=== PATIENT | male | born 1960 | race Caucasian/White ===

== ENCOUNTER → 2017-07-21 | Outpatient (CLI) | payer OTHER ==
[~2017-07-21] MED LIST: AMITRIPTYLINE H75 M1 PO; COZAAR 50 MG TA50 M2 PO; FLEXERIL PO; FLOMAX0.4 MG PO; IBUPROFEN 800800 M1 PO; MORPHINE SULFA100 MG PO; MORPHINE SULFAT15 M3 PO; OMEPRAZOLE40 MG PO; PROTONIX40 M1 PO; XANAX1 MG PO; aller-tec PO
--- NOTE | 2017-07-21 16:29 | CARDNUC ---
[place] [address] CARDIAC NUCLEAR IMAGING REPORT Name: CLAUDY TALLEY Room: [facility]#: [id number] Admission: 07/21/17 Attend Phys: Redd Vera, Discharge: Date of : 64 Date of Service: 07/21/17 1629 Report #: [id number] THIS REPORT FOR: //name// APPROVED REPORT Exam: Nuclear Stress Test Indication: Chest pain Patient Location: Out-Patient Stress Tech: Elena Stewart Stress Nurse: Kandice Kaufman RN Ht: 6 ft 0 in Wt: 186 lbs BSA: 2.07 m2 BMI: 25.22 Medical History Medical History: HTN, Smoking Medications: LOSARTAN Allergies: MOLD EXTRACT Cardiac Risk Factors: Age, Current Smoker, HTN Exercise History: Sedentary Physical Disabilities: LEG INJURY Stress Test Details Stress Test: Pharmacologic stress testing performed using 0.4 mg of regadenoson per 5 mL given IV over 10 seconds. Reason for pharmacologic stress test: physical limitation. HR Resting HR: 79 bpm Max Heart Rate (APMHR): 166 bpm Max HR Achieved: 118 bpm Target HR (85% APMHR): 141 bpm % of APMHR: 71 Recovery HR: 86 bpm BP Resting BP: 138/83 mmHg Max BP: 148/71 mmHg ECG Resting ECG: Sinus Rhythm Stress ECG: Sinus Rhythm ST Change: None Arrhythmia: None Recovery ECG: Sinus Rhythm Recovery ST Change: None Recovery Arrhythmia: [place] [address] CARDIAC NUCLEAR IMAGING REPORT Name: CLAUDY TALLEY Room: [facility]#: [id number] Admission: 07/21/17 Attend Phys: Redd Vera, Discharge: Date of : 64 Date of Service: 07/21/17 1629 Report #: [id number] Clinical Reason for Termination: Completed protocol Stress Symptoms: None Exercise duration: 0 min sec Exercise capacity: 1.0 METs The patient had no significant symptoms with Lexiscan infusion. Stress ECG Conclusion The baseline 12-lead electrocardiogram showed sinus rhythm without significant ST or T wave abnormality. EKGs obtained during and post IC skin stress show sinus rhythm with no significant ST or T wave changes when compared to baseline. There were no stress-induced arrhythmias. NM EXAM: Myocardial Perfusion REST/STRESS Imaging Protocol: Rest Tc-99m/Stress Tc-99m 1 day Resting Data Rest SPECT myocardial perfusion imaging was performed in supine position 30 minutes following the intravenous injection of 11.3 mCi of Tc-99m Sestamibi. Time of rest injection: 1255 Time of rest imagin The images were gated to evaluate regional wall motion and calculate left ventricular ejection fraction. Administration Route: IV Administration Site: Right AC Pharmacologic Stress Pharmacologic stress test was performed by injecting Regadenoson 0.4 mg IV push followed by the intravenous injection of 33.8 mCi of Tc-99m Sestamibi. Time of stress injection: 1440 Time of stress imagin Administration Route: IV Administration Site: Right AC Heart Rate at time of stress injection: 118 bpm. Gated Stress SPECT was performed 40 minutes after stress injection. The images were gated to evaluate regional wall motion and calculate left ventricular ejection fraction. Prone imaging [place] [address] CARDIAC NUCLEAR IMAGING REPORT Name: CLAUDY TALLEY Room: [facility]#: [id number] Admission: 07/21/17 Attend Phys: Redd Vera, Discharge: Date of : 64 Date of Service: 07/21/17 1629 Report #: [id number] Study: Good Artifact: Mild Diaphragmatic artifact Study Data At rest, the left ventricular ejection fraction was 73%.. Post stress, the left ventricular ejection was 73%.. TID = 0.94. Perfusion Perfusion images obtained at rest show mild photopenia of the inferior wall that resolves with prone imaging post Lexiscan stress suggesting diaphragmatic attenuation artifact. Post stress imaging shows uniform uptake of the radioisotope throughout the myocardium without defect. Wall Motion Normal left ventricular wall motion. Nuclear Conclusion ECG Findings: negative for ischemia Clinical Findings: negative for ischemia Nuclear Findings: negative for ischemia Exercise Capacity: not assessed Left Ventricular Function: normal Risk Study: low Myocardial perfusion images show no defect to suggest infarct or ischemia. Left ventricular systolic function appears normal on gated studies. This is a low risk study. <Conclusion> The baseline 12-lead electrocardiogram showed sinus rhythm without significant ST or T wave abnormality. EKGs obtained during and post IC skin stress show sinus rhythm with no significant ST or T wave changes when compared to baseline. There were no stress-induced arrhythmias. <ELECTRONICALLY SIGNED> By: Redd Vera MD, FACC 07/21/17 1629 1629 1629 Redd Vera MD, FACC /INF
== END ==
LOC: M.NUC 12:20
DX: R07.89 Other chest pain (principal); I10 Essential (primary) hypertension; Z87.891 Personal history of nicotine dependence

== ENCOUNTER → 2017-12-26 | Outpatient (CLI) | payer OTHER | LOC: M.MRI 17:22 | DX: M47.816 Spondylosis without myelopathy or radiculopathy, lumbar region (principal); M51.36 Other intervertebral disc degeneration, lumbar region; M48.062 Spinal stenosis, lumbar region with neurogenic claudication; M25.78 Osteophyte, vertebrae ==

== ENCOUNTER → 2018-01-17 | Outpatient (CLI) | payer OTHER ==
--- NOTE | 2018-02-27 10:30 | PAINCON ---
[facility] [address] [place] [address] PAIN MANAGEMENT CONSULTATION Name: CLAUDY TALLEY Room: [facility] Nigel#: [id number] Admission: 01/17/18 Attend Phys: Lam Rodríguez MD Discharge: Date of : 64 Report #: [id number] THIS REPORT FOR: //name// CC: Lily Aaron DATE OF SERVICE: 01/17/2018 CHIEF COMPLAINT: Back pain. HISTORY OF PRESENT ILLNESS: The patient is a 57-year-old gentleman who has been referred to the pain clinic for evaluation of back pain. The patient states that he does have some pain in the middle of his back. Described as a sharp, stabbing discomfort. Worse with prolonged walking, sitting, standing. Notes some increased pain with activity, bending, lifting and going from a sitting to a standing position. He has had problems with his back in the past. He underwent a surgical fusion at L5-S1 in 2000. He notes that the pain limits his activities of daily living. He finds it hard to complete his "chores." He feels that it is a "daily struggle." He rates his pain as a 9/10 at this point. Denies any bowel or bladder dysfunction. The patient states that he was taking morphine 100 mg b.i.d. as well as 15 mg morphine immediate release b.i.d. He states that over the last few weeks, he stopped taking his medications. He found that it was somewhat difficult secondary to some of the withdrawal-type symptomatology, but overall he feels that he has passed that stage. As you may recall, he suffers from PTSD. He has had some pain in his low back area with pain that has radiated down into his left foot. He feels that there is some tightness of the muscles in the low back as well. He has had what he consider some numbness and tingling in his legs. He has a history of hepatitis C. MEDICATIONS: Xanax 1 mg q.i.d.; Elavil 150 mg at bedtime; Flexeril 10 mg 1 p.o. t.i.d., spasms; Motrin 800 mg every 8 hours; losartan 50 mg; morphine sulfate immediate release 15 mg b.i.d., the patient states he has stopped taking this medication; omeprazole 40 mg; Flomax 0.4 mg b.i.d., Aller-Savanna 10 mg daily. PAST MEDICAL HISTORY: Epigastric pain, enlarged prostate, gastroesophageal reflux, posttraumatic stress disorder, chronic bilateral lower back pain with history of right-sided sciatica, mid back pain, precordial pain, essential hypertension, hepatitis C and shingles. PAST SURGICAL HISTORY: Back surgery in 2000, bladder surgery, colonoscopy, sigmoid polyp, hand surgery, sinus surgery and transurethral resection of the prostate. SOCIAL HISTORY: Smokes half pack of [place] [address] PAIN MANAGEMENT CONSULTATION Name: CLAUDY TALLEY [id number] Admission: 01/17/18 Attend Phys: Lam Rodríguez MD Discharge: Date of : 64 Report #: [id number] REVIEW OF SYSTEMS: Generally unremarkable except for the HPI. DIAGNOSTIC DATA: MRI dated 12/26/2017 of the lumbar spine: 1. L3-L4, there is a generalized disk bulge and mild bilateral facet arthropathy and ligamentum flavum hypertrophy. There is mild central canal stenosis and mild bilateral neural foraminal stenosis. 2. L4-L5, there is no disk bulge. There is a mild bilateral facet arthropathy and ligamentum flavum hypertrophy. There is no central canal or neural foraminal stenosis. 3. L5-S1, there is no disk bulge. There are bilateral endplate osteophytes and moderate bilateral facet arthropathy. There is no central canal stenosis. There is stable mild bilateral neural foraminal stenosis. IMPRESSION: 1. Again, new moderate L3-L4 and mild L4-L5 and L1-L2 degenerative disk disease. 2. L3-L4 generalized disk bulge with mild bilateral facet arthropathy and ligamentum flavum hypertrophy contributes to mild central canal stenosis and mild bilateral neural foraminal stenosis. 3. Stable changes of instrumented posterior spinal fixation procedure at L5-S1. PAIN CLINIC ASSESSMENT: 1. History of osteoarthritis/history of arthritis. The patient is not being treated for osteoarthritis or rheumatoid arthritis. 2. Height 6 feet, weight 191 pounds, BMI is 26.1. 3. Vital Signs: Blood pressure is 166/103, another blood pressure 166/87, heart rate 87, respiratory rate 16, room air saturation is 98%, temperature 98.3. Pain clinic score 9/10. 4. Fall. The patient states that he has fallen in the past. 5. Blood thinner. The patient is not on a blood thinning medication. 6. History of hypertension. The patient has been treated for hypertension. 7. Opioid greater than 6 weeks. The patient was on opioid medications. He states that he stopped taking these over the past few weeks. 8. Risk assessment tool. 9. Functional assessment tool. 10. Recreational drug use. The patient denies use of recreational drugs. 11. Tobacco: The patient smokes one-half pack of cigarettes per day. 12. Alcohol: The patient denies use of alcohol. PHYSICAL EXAMINATION: GENERAL: The patient is a well-developed, well-nourished white male. Appears his stated age. He is alert and oriented x 3. Affect is unremarkable, was present with his significant other. HEENT: Normocephalic, atraumatic. Extraocular eye muscles intact. Sclerae nonicteric. Mucous membranes are moist. NECK: Without adenopathy [place] [address] PAIN MANAGEMENT CONSULTATION Name: CLAUDY TALLEY Room: [facility]#: [id number] Admission: 01/17/18 Attend Phys: Lam Rodríguez MD Discharge: Date of : 64 Report #: [id number] HEART: Regular rate. S1, S2. ABDOMEN: Nontender. EXTREMITIES: Upper extremity muscle strength is judged to be 5/5 for the major muscle groups. MUSCULOSKELETAL: Without significant scoliosis, kyphosis or lordosis. The patient has some pain and discomfort approximately at T12-L1. The patient states that he feels as though a rib is out of place. Forward bending to touch his toes was not very problematic. Lumbar extension was not very problematic. Left and right lateral bending, left and right lateral rotation were not very problematic, but the patient did complain of pain and discomfort in the mid area approximately T12-L1. Lower extremity muscle strength is judged to be 5/5 for the major muscle groups without complaints of radiculopathy at this juncture. IMPRESSION: 1. Low back pain. 2. Epigastric pain. 3. Enlarged prostate. 4. Gastroesophageal reflux. 5. Posttraumatic stress disorder. 6. Chronic bilateral lower back pain with history of right-sided sciatica. 7. Mid back pain. 8. Precordial pain. 9. Essential hypertension. 10. Hepatitis C. 11. Shingles. RECOMMENDATION: We discussed treatment options with the patient. Risks and benefits of trigger point injections to the affected area were discussed. The patient states that he is not interested in continuing with opioid medications. He states that he stopped taking the medication and that things have gotten better. Feels like he is over the withdrawal component of the opioids. Did not have any cardiac events during the withdrawal. Again, his biggest concern is pain in the mid back area. We discussed options. We will have the patient return to the pain clinic, at which time we will consider an epidural treatment. <ELECTRONICALLY SIGNED> By: Lam Rodríguez MD 02/27/18 1030 1122 1840N. Emre Rodríguez MD /nt
== END ==
LOC: M.PC 03:46
DX: M54.5 Low back pain (principal); I10 Essential (primary) hypertension; N40.0 Benign prostatic hyperplasia without lower urinary tract symptoms; K21.9 Gastro-esophageal reflux disease without esophagitis; B19.20 Unspecified viral hepatitis C without hepatic coma; R10.13 Epigastric pain; B02.9 Zoster without complications; R07.2 Precordial pain; G89.29 Other chronic pain

== ENCOUNTER → 2018-01-20 | Outpatient (CLI) | payer OTHER ==
[2018-01-21 05:10] LABS: HEPATITIS B SURFACE AG Negative (Negative)
== END ==
LOC: M.LAB 15:00
PROVIDERS: Nurse Practitioner Adult Health
DX: R10.13 Epigastric pain (principal); Z79.1 Long term (current) use of non-steroidal anti-inflammatories (NSAID)

== ENCOUNTER 2018-03-07 17:17 | Emergency (ER) | payer OTHER ==
[~2018-03-07] VITALS: Ht 182.9 cm; Wt 86.6 kg
[~2018-03-07 17:17] MED LIST changes: -PROTONIX40 M1 PO
[2018-03-07] MEDS ORDERED: PROTONIX40 M1 PO (17:31)
[2018-03-07 19:30] VITALS: BP 127/89
== END 2018-03-07 19:30 | disposition home or self-care (01) ==
LOC: M.ERS 17:17
DX: F41.9 Anxiety disorder, unspecified (principal); K21.9 Gastro-esophageal reflux disease without esophagitis; I10 Essential (primary) hypertension

== ENCOUNTER → 2018-03-16 | Outpatient (CLI) | payer OTHER ==
[~2018-03-16] MED LIST changes: +PROTONIX40 M1 PO
--- NOTE | 2018-03-29 16:38 | PAINCON ---
[address] [address] PAIN MANAGEMENT CONSULTATION Name: CLAUDY TALLEY [id number] Admission: 03/16/18 Attend Phys: Lam Rodríguez MD Discharge: Date of : 64 Report #: [id number] THIS REPORT FOR: //name// CC: Lily Rodríguez DATE OF SERVICE: 03/16/2018 COMPLAINT: Here for an injection in the back. FOLLOWUP HISTORY: The patient is a 57-year-old gentleman who has been seen in the pain clinic. He has pain and discomfort in his mid back area. States that he feels as though a rib has been moved out of place. Notes the pain is worse with walking, sitting, standing and certain activities of daily living. Notes that the pain is significant enough that he has difficulty sleeping. He has been having some difficulty with his balance. States that he has fallen. He has been having back pain since 2000. As you may recall, he has had surgery in the lower portion of his back in the lumbar area. He was on opioid medications. He states that he stopped these medications some time ago. As you may recall, he suffers from PTSD. He does continue to have some pain that radiates down into his left foot. The pain that he is experiencing today is more problematic up in the upper thoracic area. He state it feels as like a rib is out of place. ALLERGIES: No known drug allergies. CURRENT MEDICATIONS: Flexeril 10 mg 1 p.o. t.i.d., ibuprofen 800 mg q. 8 hours p.r.n., Cozaar 50 mg, Protonix 40 mg daily, Flomax 0.4. PAIN CLINIC ASSESSMENT AND PQRS: 1. History of osteoarthritis. The patient has some arthritic changes in the low back area, has had surgery. 2. Rheumatoid arthritis. The patient is not being treated for rheumatoid arthritis. 3. Height 6 feet 0 inches, weight 188 pounds, BMI is 25.5. 4. Vital signs: Blood pressure 145/102 on the right side, left side 157/106, heart rate 95, respiratory rate 18, room air saturation 97%, temperature 98.3. 5. Pain score 8/10. 6. Fall risk. The patient states that he has fallen. He does walk with an antalgic gait and uses a cane. 7. Blood thinner. The patient is not on a blood thinning medication. 8. Hypertension. The patient is being treated for hypertension. 9. Opioids greater than 6 weeks. The patient is not on an opioid medication. He stopped these medications while back. 10. Risk assessment tool. 11. Functional assessment tool. 12. Recreational drug use. The patient denies [place] [address] PAIN MANAGEMENT CONSULTATION Name: CLAUDY TALLEY Room: [facility]#: [id number] Admission: 03/16/18 Attend Phys: Lam Rodríguez MD Discharge: Date of : 64 Report #: [id number] 13. Tobacco: The patient is smoking cigarettes 1 pack per day. 14. Alcohol: The patient denies use of alcohol on a regular basis. PHYSICAL EXAMINATION: GENERAL: The patient is a well-developed, well-nourished white male. Appears as stated age. He is alert and oriented x 3. Affect is appropriate. Speech is somewhat slow, but fluent. HEENT: Normocephalic, atraumatic. Extraocular eye muscles intact. Sclerae nonicteric. The patient is wearing glasses. NECK: Without adenopathy or JVD. HEART: Regular rate. S1, S2. ABDOMEN: Nontender. Bowel sounds present. EXTREMITIES: Upper extremity muscle strength is judged to be 5/5 for the major muscle groups. The patient without significant scoliosis, kyphosis or lordosis. Does walk with a slight lean to the left. The patient walks with use of his cane. Has some pain and discomfort in approximately the T10/T12 area. Palpation in the area does reproduce the patient's discomfort. Feels that there is "a rib out of place." At T11/T12, the patient notes pain and discomfort. This reproduces his pain and discomfort. Palpation in this area, he has some pain around the side area. Movement of the upper extremity does reproduce pain and discomfort in the T12 area. IMPRESSION: 1. Low back pain, thoracic area T11/T12. 2. Epigastric pain. 3. Enlarged prostate. 4. Gastroesophageal reflux. 5. Post-traumatic stress disorder. 6. Chronic bilateral low back pain with history of right-sided sciatica. 7. Mid back pain. 8. Precordial pain. 9. Essential hypertension. 10. Hepatitis C. 11. Shingles. The patient has had these in the past. RECOMMENDATIONS: We discussed treatment options with the patient. At this juncture, he continues to have pain and discomfort in the mid back area. This in the area of the T12 area. Palpation between T12 and T11 reproduce the patient's discomfort. Still has pain that he describes like a rib out of place. We discussed the possible complication of the procedure, which could include but are not limited to infection, increased muscle soreness, headache, bleeding, worsening of pain, no improvement in pain, paralysis, pneumothorax and the patient elects to proceed. PROCEDURE NOTE: The patient was taken to the procedure area. He was then assisted in getting on the examination table. His back [place] [address] PAIN MANAGEMENT CONSULTATION Name: CLAUDY TALLEY Room: [facility]#: [id number] Admission: 03/16/18 Attend Phys: Lam Rodríguez MD Discharge: Date of : 64 Report #: [id number] with a Betadine solution. Fluoroscopy using anterior, posterior as well as lateral imaging were conducted. At the T11/T12 area, palpation in this area causes the patient to complain of pain and discomfort, which he has been experiencing. His back was then sterilely prepped with a Betadine solution. A pillow was under his abdomen to improve the positioning. A 25-gauge needle was then advanced into this area and infiltrated with 0.25% bupivacaine. A 17-gauge Tuohy with loss of resistance technique was used to gain access to the epidural space at T12/T11. A total of 80 mg of Depo-Medrol, 40 mg of triamcinolone was injected. The patient tolerated the procedure well. He remained in the pain clinic for an appropriate amount of time. There was some evidence of elevation of his blood pressures to 175/103. We would recommend that the patient follow up with his primary physician in that regard. We would like to thank you for letting us participate in his care. We hope he continues to improve. <ELECTRONICALLY SIGNED> By: Lam Rodríguez MD 03/29/18 1638 1551 10N. Emre Rodríguez MD /PMT
== END | disposition home or self-care (01) ==
LOC: M.PC 02:51
DX: M54.14 Radiculopathy, thoracic region (principal); M54.5 Low back pain; I10 Essential (primary) hypertension; K21.9 Gastro-esophageal reflux disease without esophagitis; N40.0 Benign prostatic hyperplasia without lower urinary tract symptoms; G89.29 Other chronic pain; F43.10 Post-traumatic stress disorder, unspecified; R10.13 Epigastric pain; F41.9 Anxiety disorder, unspecified; B19.20 Unspecified viral hepatitis C without hepatic coma; Z79.899 Other long term (current) drug therapy; Z98.890 Other specified postprocedural states